=== PATIENT | male | born 1995 | race African-American/Black ===

== ENCOUNTER 2017-12-05 11:38 | Emergency (ER) | payer MEDICAID ==
[~2017-12-05] VITALS: Ht 175.3 cm; Wt 64.0 kg
[2017-12-05 11:53] VITALS: BP 140/89
== END 2017-12-05 14:30 | disposition home or self-care (01) ==
LOC: ER 11:38
DX: R03.0 Elevated blood-pressure reading, without diagnosis of hypertension (principal); F15.10 Other stimulant abuse, uncomplicated; F17.200 Nicotine dependence, unspecified, uncomplicated; F12.10 Cannabis abuse, uncomplicated
CPT/HCPCS: 99283